=== PATIENT | female | born 1960 | race Caucasian/White ===

== ENCOUNTER 2016-11-22 09:38 | Inpatient (IN) | payer OTHER ==
[~2016-11-22] VITALS: Ht 170.2 cm; Wt 78.9 kg
[2016-11-22] VITALS (10 sets, daily range): BP systolic 103–145; BP diastolic 55–110
[2016-11-22] MEDS ORDERED: IV RINGERS,LACTATED 1000ML 1,000 ML IV SCH (14:42)
[2016-11-22] MEDS ORDERED: PROCHLORPERAZINE 10 MG/2 ML VIAL. IV PRN (14:45)
[2016-11-22] MEDS ORDERED: LIDOCAINE 1% 1 ML SYRINGE. ID PRN (14:45)
[2016-11-22] MEDS ORDERED: HYDROMORPHONE 2 MG/ML VIAL. IV PRN (14:45)
[2016-11-22] MEDS ORDERED: ONDANSETRON PF 4 MG/2 ML VIAL. IV PRN ×2 (14:45→17:30)
[2016-11-22] MEDS ORDERED: MORPHINE SULFATE 2 MG/ML DISP.SYRIN. IV PRN ×2 (14:45→17:30)
[2016-11-22] MEDS ORDERED: FENTANYL PF 100 MCG/2 ML VIAL. IV PRN ×2 (14:45→17:30)
[2016-11-22] MEDS ORDERED: PROPOFOL 20 ML IV ONE (15:19)
[2016-11-22] MEDS ORDERED: LIDOCAINE 2% 100 MG/5 ML DISP.SYRIN. ONE (15:19)
[2016-11-22] MEDS ORDERED: CEFAZOLIN 2GM PREMIX 50 ML IV ONE ×2 (15:58→16:15)
[2016-11-22] MEDS ORDERED: SEVOFLURANE 31 TO 60 MINUTES. IH ONE (16:13)
[2016-11-22] MEDS ORDERED: DEXAMETHASONE SOD PHOS 20 MG/5 ML VIAL. ONE (16:13)
[2016-11-22] MEDS ORDERED: KETOROLAC 30 MG/ML SYRINGE FOR OR. INJ ONE (16:52)
[2016-11-22] MEDS ORDERED: ONDANSETRON PF 4 MG/2 ML VIAL. ONE (16:52)
[2016-11-22] MEDS ORDERED: POLYETHYLENE GLYCOL 3350 17 GM PACKET. PO PRN (17:30)
[2016-11-22] MEDS ORDERED: HYDROCODONE/APAP 7.5/325MG TABLET. PO PRN ×2 (17:30)
[2016-11-22] MEDS ORDERED: OXYCODONE IR 5 MG TABLET. PO PRN (17:30)
[2016-11-22] MEDS ORDERED: MORPHINE SULFATE 4 MG/ML DISP.SYRIN. IV PRN (17:30)
[2016-11-22] MEDS ORDERED: DEXTROSE 50% 25 GM / 50ML DISP.SYRIN. IV PRN (17:30)
[2016-11-22] MEDS ORDERED: TRAMADOL 50 MG TABLET. PO PRN (17:30)
[2016-11-22] MEDS: FENTANYL PF 100 MCG/2 ML VIAL. IV PRN ×3 (17:40→18:15)
--- NOTE | 2016-11-22 19:18 | OP ---
DATE OF SURGERY: 11/22/2016 PREOPERATIVE DIAGNOSIS: Trimalleolar left ankle fracture. POSTOPERATIVE DIAGNOSIS: Trimalleolar left ankle fracture. PROCEDURE: Operative reduction and internal fixation bimalleolar portion of trimalleolar left ankle fracture. SURGEON: Jackson Nguyen M.D. ANESTHESIA: General endotracheal. ESTIMATED BLOOD LOSS: Minimal. COMPLICATIONS: None. OPERATIVE INDICATIONS: The patient was seen at [facility] ER today after slipping going out to her car and was transferred to [facility] for further evaluation and treatment of the above noted injury. After medical preoperative evaluation and surgical clearance, I had gone over with her and her previously the risks, benefits, postoperative course of the recommended operative treatment and even under the best of circumstances possibility of stiffness and pain, even degenerative changes and rationale to treat stability and minimize these possibilities with an operative evaluation and treatment. All her questions were answered. Consent was obtained and she agrees to proceed with operative evaluation and treatment. OPERATIVE TECHNIQUE: The patient was identified, procedure verified. The patient placed in the spine position on the operating table. After adequate amounts of general endotracheal anesthesia were administered, the left thigh tourniquet was placed on the left lower extremity and the left lower extremity is prepped and draped in standard sterile fashion. After timeout was performed, the patient and procedure identified and verified, the left lower extremity was exsanguinated by elevation, tourniquet inflated to 350 mmHg and an incision was made over the medial malleolus. Subperiosteal dissection carried out and anatomic reduction carried out and a total of two 3.5 cannulated screws were placed across the fracture site with excellent fixation obtained. Lateral side was addressed as follows. Subperiosteal dissection carried out to the distal fibula. A 6-hole distal fibular locking plate was placed. First a single 3.5 locking screw was placed to hold the plate with the fracture held in anatomic reduction. Distal 2.7 locking screws were placed as measured and the remainder of proximal nonlocking 3.5 bicortical screws were placed. Excellent fixation was obtained and anatomic reduction of the ankle joint mortise was noted. Hardware placement was checked under multiple fluoroscopic views and the posterior malleolar fragment was noted to be anatomically reduced on lateral view as well. Thorough irrigation carried out with normal saline solution. Closure accomplished with buried Vicryl sutures, subcuticular Monocryl, Steri-Strips and Mastisol well-padded posterior splint. Toes were noted to be warm and pink following deflation of the tourniquet after a total tourniquet time less than 1 hour. The patient was extubated and transferred to postop holding in stable condition having tolerated the procedure well. JACKSON NGUYEN MD DR: SANDI/taylor JOB#: [id number] / [id number]
[2016-11-22] MEDS ORDERED: 0.9 % SODIUM CHLORIDE 10 ML DISP.SYRIN. IV PRN (19:45)
--- NOTE | 2016-11-22 20:24 | HP ---
ADMIT DATE: 11/22/2016 CHIEF COMPLAINT: Left ankle fracture. HISTORY OF PRESENT ILLNESS: The patient is a 56-year-old woman in a fairly good state of health who slipped on the ice breaking her left ankle this morning. She was transferred from [facility] with Dr. Nguyen accepting her for surgery later today. The patient relates that the pain currently is well controlled. She received p.o. pain medications at [facility]. PAST MEDICAL HISTORY: Hypothyroidism, on Synthroid. FAMILY HISTORY: Noncontributory, sister with breast cancer in her 60s. 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 ALLERGIES: No known drug allergies. MEDICATIONS: MAR reconciled with home medications. REVIEW OF SYSTEMS: The patient relates that currently pain is very well controlled. Has no other complaints in rest of organ system review. PHYSICAL EXAMINATION: VITAL SIGNS: Show a blood pressure of 147/79, heart rate of 98, respiratory rate at 18. She is afebrile, satting 97-100% on room air. Temp of 100.3. GENERAL: She is alert and oriented, in no acute distress. HEENT: Shows no scleral icterus. NECK: Supple without any lymphadenopathy. LUNGS: Clear to auscultation bilaterally. HEART: Regular rate and rhythm. ABDOMEN: Has positive bowel sounds, soft, nontender. EXTREMITIES: Show no edema. Lower extremity is wrapped in Michael bandage and the left toe appears pink and warm. LABORATORY DATA: Reviewed from [place], essentially within normal limits. ASSESSMENT AND PLAN: The patient is a 56-year-old woman who unfortunately sustained a trimalleolar ankle fracture on the left. She is scheduled to undergo a surgical repair later this afternoon. I discussed pain regimen with her. She will have oral medications available preferentially. Morphine will be back up IV as needed. Discussed with her constipation issues, drug-induced as well as surgery. We will start her on MiraLax daily. High risk for DVT is given with orthopedic surgery. We will start Lovenox tomorrow a.m. unless uncontrolled bleeding is noted. Rehab and discharge will be dependent on Orthopedic evaluation. We will get OT, PT involved in the near future. SHANNON VAN MD DR: LEELEE/nts JOB#: [id number] / [id number] MAGGY Mullen
[2016-11-22] MEDS: CEFAZOLIN 2GM PREMIX 50 ML IV SCH (22:15)
--- NOTE | 2016-11-23 01:05 | CONS ---
DATE OF CONSULTATION: 11/22/2016 HISTORY OF PRESENT ILLNESS: The patient is a 56-year-old female that had fallen today while she was attempting to get in the car, slipped on some ice, and presented to the [facility] Emergency Department with a left ankle injury. She was found to have a trimalleolar fracture and sent to [facility] for further evaluation and treatment. PAST MEDICAL HISTORY: Significant really only for hypothyroidism. She is on thyroid medication. ALLERGIES: No known drug allergies. FAMILY HISTORY: Noncontributory. REVIEW OF SYSTEMS: Denies any chest pain, shortness of breath, radiating pain, focal weakness, numbness, tingling, change in bowel or bladder habits, neck or back pain, visual changes. No evidence of any head trauma or loss of consciousness. Last intake of food was 0615 a.m. PHYSICAL EXAMINATION: VITAL SIGNS: Temp 98.1, pulse 79, blood pressure 140/73, 98% saturation on room air. HEENT: Atraumatic, normocephalic. EXTREMITIES: Examination of the left ankle reveals tenderness over the medial and lateral malleoli with obvious swelling and deformity. Skin is overlying intact aside from swelling and has clear ligamentous laxity. She has normal examination of the contralateral ankle, bilateral hips and knees motion and alignment with intact motor function, distal pulses, sensation in both lower extremities throughout. IMAGING: X-rays show a trimalleolar ankle fracture with some mild displacement of the left ankle. TREATMENT AND PLAN: I have discussed with the patient and her the structure and function and anatomy of the ankle, the recommended fixation with the trimalleolar fracture and the hearing instability, the possibility even under the best of circumstances of having some stiffness and pain with activity, whether changes, etc., as well as the possibility of nonhealing, but the intention of surgical evaluation to fixate the ankle anatomically as possible and minimize any of these issues as well as any instability. I did describe to her that often if the posterior malleolar fragment is not large enough, that it may not require fixation; however, if it is larger intraoperatively, we would proceed with fixation of that as well as needed. She is aware of the approximate 6 week-period healing permitting of nonweightbearing and the risks, benefits, postoperative course of possible infection, nerve or blood vessel damage, medical or other anesthetic complications, blood clots among others. All her questions were answered. Consent was obtained and she agrees to proceed with operative evaluation and treatment, which will occur today following medical evaluation and clearance. MARYBEL TAI MD DR: SANDI/taylor JOB#: [id number] / [id number]
[2016-11-23 03:00] VITALS: BP 102/55
[2016-11-23] MEDS: CEFAZOLIN 2GM PREMIX 50 ML IV SCH ×2 (04:14→10:56)
[2016-11-23] MEDS ORDERED: MAGNESIUM HYDROXIDE 2,400 MG/30 ML ORAL.SUSP. PO PRN (06:00)
[2016-11-23 06:35] LABS: BASO % 0 % (0-3); EOS % 0 % (0-3); HEMATOCRIT 35.2 % (36.0-47.0); HEMOGLOBIN 11.8 g/dL (12.0-15.5); LYMPH % 11 % (24-48); MEAN CORPUSCULAR HEMOGLOBIN 29 pg (25-35); MEAN CORPUSCULAR HGB CONC 34 g/dL (31-37); MEAN CORPUSCULAR VOLUME 85 fL (79-100); MONO % 5 % (0-9); NEUT % 83 % (31-73); PLATELET COUNT 237 x10^3/uL (140-400); RED BLOOD COUNT 4.15 x10^6/uL (3.50-5.40); RED CELL DISTRIBUTION WIDTH 13.1 % (11.5-14.5); WHITE BLOOD COUNT 9.2 x10^3/uL (4.0-11.0)
[2016-11-23 06:52] LABS: CALCIUM 9.1 mg/dL (8.5-10.1); CREATININE 0.7 mg/dL (0.6-1.0); GFR 86.2; POTASSIUM 4.6 mmol/L (3.5-5.1)
[2016-11-23 07:00] VITALS: BP 110/63
[2016-11-23] MEDS ORDERED: INFLUENZA VAX SCREEN BY RX. MC PRN (08:45)
[2016-11-23] MEDS ORDERED: FLU VACC QUAD 2016-17 (36MOS+)/PF 0.5 ML SYRINGE. VAX IM ONE (09:00)
[2016-11-23] MEDS ORDERED: POLYETHYLENE GLYCOL 3350 17 GM PACKET. PO PRN (09:00)
[2016-11-23] MEDS ORDERED: SENNOSIDES/DOCUSATE 8.6/50MG TABLET. PO SCH (09:00)
[2016-11-23] MEDS ORDERED: ENOXAPARIN 40 MG/0.4 ML DISP.SYRIN. SQ SCH (09:00)
[2016-11-23] MEDS ORDERED: ACETAMINOPHEN 325 MG TABLET. PO PRN (10:15)
[2016-11-23 11:00] VITALS: BP 132/75
--- NOTE | 2016-11-23 14:42 | PDOC ---
PROGRESS NOTES Chief Complaint Chief Complaint L ankle fx ASSESSMENT AND PLAN: 1. L ankle fx: s/p fixation on 11/[address] Nguyen. recovering appropriately 2. Pain control: good. minimal med need 3. Hypothyroidism: restart synthroid 100 4. Prophylaxis: lovenox to ASA 5. Dispo: home today w/ F/U Dr Nguyen Vitals Vitals Vital Signs Date Time Temp Pulse Resp B/P Pulse Ox O2 Delivery O2 Flow Rate FiO2 11/23/16 11:00 97.5 89 18 132/75 99 Room Air 97.5 11/22/16 17:51 8.0 Physical Exam General: Alert, Oriented X3, Cooperative Heart: Regular rate Lungs: Clear Abdomen: Normal bowel sounds, Soft, No tenderness Extremities: Other (L LE in wrap) Skin: No rashes Labs LABS Laboratory Tests Test 11/23/16 05:50 White Blood Count 9.2x10^3/uL (4.0-11.0) Red Blood Count 4.15x10^6/uL (3.50-5.40) Hemoglobin 11.8g/dL (12.0-15.5) Hematocrit 35.2% (36.0-47.0) Mean Corpuscular Volume 85fL (79-100) Mean Corpuscular Hemoglobin 29pg (25-35) Mean Corpuscular Hemoglobin Concent 34g/dL (31-37) Red Cell Distribution Width 13.1% (11.5-14.5) Platelet Count 237x10^3/uL (140-400) Neutrophils (%) (Auto) 83% (31-73) Lymphocytes (%) (Auto) 11% (24-48) Monocytes (%) (Auto) 5% (0-9) Eosinophils (%) (Auto) 0% (0-3) Basophils (%) (Auto) 0% (0-3) Neutrophils # (Auto) 7.6x10^3uL (1.8-7.7) Lymphocytes # (Auto) 1.0x10^3/uL (1.0-4.8) Monocytes # (Auto) 0.5x10^3/uL (0.0-1.1) Eosinophils # (Auto) 0.0x10^3/uL (0.0-0.7) Basophils # (Auto) 0.0x10^3/uL (0.0-0.2) Sodium Level 144mmol/L (136-145) Potassium Level 4.6mmol/L (3.5-5.1) Chloride Level 108mmol/L (98-107) Carbon Dioxide Level 28mmol/L (21-32) Anion Gap 8 (6-14) Blood Urea Nitrogen 15mg/dL (7-20) Creatinine 0.7mg/dL (0.6-1.0) Estimated GFR (Cockcroft-Gault) 86.2 Glucose Level 114mg/dL (70-99) Calcium Level 9.1mg/dL (8.5-10.1) Review of Systems Review of Systems eager to go home, pain very well controlled. Comment Review of Relevant I have reviewed the following items brigette (where applicable) has been applied. Labs Laboratory Tests Test 11/23/16 05:50 White Blood Count 9.2x10^3/uL (4.0-11.0) Red Blood Count 4.15x10^6/uL (3.50-5.40) Hemoglobin 11.8g/dL (12.0-15.5) Hematocrit 35.2% (36.0-47.0) Mean Corpuscular Volume 85fL (79-100) Mean Corpuscular Hemoglobin 29pg (25-35) Mean Corpuscular Hemoglobin Concent 34g/dL (31-37) Red Cell Distribution Width 13.1% (11.5-14.5) Platelet Count 237x10^3/uL (140-400) Neutrophils (%) (Auto) 83% (31-73) Lymphocytes (%) (Auto) 11% (24-48) Monocytes (%) (Auto) 5% (0-9) Eosinophils (%) (Auto) 0% (0-3) Basophils (%) (Auto) 0% (0-3) Neutrophils # (Auto) 7.6x10^3uL (1.8-7.7) Lymphocytes # (Auto) 1.0x10^3/uL (1.0-4.8) Monocytes # (Auto) 0.5x10^3/uL (0.0-1.1) Eosinophils # (Auto) 0.0x10^3/uL (0.0-0.7) Basophils # (Auto) 0.0x10^3/uL (0.0-0.2) Sodium Level 144mmol/L (136-145) Potassium Level 4.6mmol/L (3.5-5.1) Chloride Level 108mmol/L (98-107) Carbon Dioxide Level 28mmol/L (21-32) Anion Gap 8 (6-14) Blood Urea Nitrogen 15mg/dL (7-20) Creatinine 0.7mg/dL (0.6-1.0) Estimated GFR (Cockcroft-Gault) 86.2 Glucose Level 114mg/dL (70-99) Calcium Level 9.1mg/dL (8.5-10.1) Laboratory Tests Test 11/23/16 05:50 White Blood Count 9.2x10^3/uL (4.0-11.0) Red Blood Count 4.15x10^6/uL (3.50-5.40) Hemoglobin 11.8g/dL (12.0-15.5) Hematocrit 35.2% (36.0-47.0) Mean Corpuscular Volume 85fL (79-100) Mean Corpuscular Hemoglobin 29pg (25-35) Mean Corpuscular Hemoglobin Concent 34g/dL (31-37) Red Cell Distribution Width 13.1% (11.5-14.5) Platelet Count 237x10^3/uL (140-400) Neutrophils (%) (Auto) 83% (31-73) Lymphocytes (%) (Auto) 11% (24-48) Monocytes (%) (Auto) 5% (0-9) Eosinophils (%) (Auto) 0% (0-3) Basophils (%) (Auto) 0% (0-3) Neutrophils # (Auto) 7.6x10^3uL (1.8-7.7) Lymphocytes # (Auto) 1.0x10^3/uL (1.0-4.8) Monocytes # (Auto) 0.5x10^3/uL (0.0-1.1) Eosinophils # (Auto) 0.0x10^3/uL (0.0-0.7) Basophils # (Auto) 0.0x10^3/uL (0.0-0.2) Sodium Level 144mmol/L (136-145) Potassium Level 4.6mmol/L (3.5-5.1) Chloride Level 108mmol/L (98-107) Carbon Dioxide Level 28mmol/L (21-32) Anion Gap 8 (6-14) Blood Urea Nitrogen 15mg/dL (7-20) Creatinine 0.7mg/dL (0.6-1.0) Estimated GFR (Cockcroft-Gault) 86.2 Glucose Level 114mg/dL (70-99) Calcium Level 9.1mg/dL (8.5-10.1) Medications Current Medications Ondansetron HCl (Zofran) 4 mg PRN Q6HRS PRN IV Nausea; Start 11/22/16 at 14:45 ; Stop 11/22/16 at 22:00; Status DC Fentanyl Citrate (Fentanyl 2ml Vial) 25 mcg PRN Q5MIN PRN IV MILD PAIN Last administered on 11/22/16t 18:15; Start 11/22/16 at 14:45; Stop 11/22/16 at 19:57 ; Status DC Fentanyl Citrate (Fentanyl 2ml Vial) 50 mcg PRN Q5MIN PRN IV MODERATE PAIN; Start 11/22/16 at 14:45; Stop 11/22/16 at 19:57; Status DC Morphine Sulfate 1 mg 1 mg PRN Q10MIN PRN IV SEVERE PAIN; Start 11/22/16 at 14: 45; Stop 11/22/16 at 19:42; Status DC Lactated Ringer's (Iv Lactated Ringers) 1,000 ml @ 30 mls/hr Q24H IV ; Start at 14:42; Stop 11/22/16 at 16:45; Status DC Lidocaine HCl 2 ml 1X PRN PRN ID IV START; Start 11/22/16 at 14:45; Stop at 16:27; Status DC Hydromorphone HCl (Dilaudid) 0.5 mg PRN Q10MIN PRN IV SEV PAIN,Second choice; Start 11/22/16 at 14:45; Stop 11/22/16 at 19:42; Status DC Prochlorperazine Edisylate 5 mg 5 mg PACU PRN PRN IV NAUSEA; Start 11/22/16 at 14:45; Stop 11/22/16 at 22:00; Status DC Propofol (Diprivan) 20 ml @ As Directed STK-MED ONCE IV ; Start 11/22/16 at 15: 19; Stop 11/22/16 at 16:27; Status DC Lidocaine HCl 100 mg 100 mg STK-MED ONCE .ROUTE ; Start 11/22/16 at 15:19; Stop 11/22/16 at 16:27; Status DC Cefazolin Sodium/ Dextrose 50 ml @ As Directed STK-MED ONCE IV ; Start 11/22/16 at 15:58; Stop 11/22/16 at 15:59; Status DC Cefazolin Sodium/ Dextrose (Ancef 2gm Premix) 50 ml @ 100 mls/hr 1X ONCE IV Last administered on 11/22/16t 16:15; Start 11/22/16 at 16:15; Stop 11/22/16 at 16:45; Status DC Dexamethasone Sodium Phosphate (Decadron) 20 mg STK-MED ONCE .ROUTE ; Start at 16:13; Stop 11/22/16 at 16:14; Status DC Sevoflurane (Ultane) 30 ml STK-MED ONCE IH ; Start 11/22/16 at 16:13; Stop 11/22 at 16:27; Status DC Ketorolac Tromethamine (Toradol For Or Only) 30 mg STK-MED ONCE INJ ; Start at 16:52; Stop 11/22/16 at 16:53; Status DC Ondansetron HCl (Zofran) 4 mg STK-MED ONCE .ROUTE ; Start 11/22/16 at 16:52; Stop 11/22/16 at 16:53; Status DC Tramadol HCl (Ultram) 50 mg PRN QID PRN PO PAIN; Start 11/22/16 at 17:30 Oxycodone HCl (Roxicodone) 5 mg PRN Q3HRS PRN PO PAIN; Start 11/22/16 at 17:30 Morphine Sulfate 2 mg PRN Q1HR PRN IV PAIN; Start 11/22/16 at 17:30; Stop 11/22 at 19:57; Status DC Fentanyl Citrate (Fentanyl 2ml Vial) 25 mcg PRN Q1HR PRN IV PAIN; Start at 17:30; Stop 11/22/16 at 19:42; Status DC Senna/Docusate Sodium (Senna Plus) 1 tab DAILY PO ; Start 11/23/16 at 09:00; Stop 11/23/16 at 09:00; Status DC Polyethylene Glycol (miraLAX PACKET) 17 gm PRN DAILY PRN PO CONSTIPATION; Start 11/22/16 at 17:30; Stop 11/22/16 at 19:57; Status DC Ondansetron HCl (Zofran) 4 mg PRN Q4HRS PRN IV NAUSEA/VOMITING; Start 11/22/16 at 17:30; Stop 11/22/16 at 19:57; Status DC Magnesium Hydroxide (Milk Of Magnesia) 2,400 mg 1X PRN PRN PO CONSTIPATION; Start 11/23/16 at 06:00; Stop 11/24/16 at 05:59 Bisacodyl (Dulcolax Supp) 10 mg 1X PRN PRN [place] CONSTIPATION; Start 11/23/16 at 16:00; Stop 11/24/16 at 15:59 Acetaminophen/ Hydrocodone Bitart (Lortab 7.5/325) 1 tab PRN Q4HRS PRN PO PAIN ; Start 11/22/16 at 17:30; Stop 11/22/16 at 19:57; Status DC Morphine Sulfate 4 mg PRN Q2HR PRN IV PAIN; Start 11/22/16 at 17:30; Stop 11/22 at 19:42; Status DC Acetaminophen/ Hydrocodone Bitart (Lortab 7.5/325) 2 tab PRN Q4HRS PRN PO PAIN ; Start 11/22/16 at 17:30; Stop 11/22/16 at 19:57; Status DC Dextrose 12.5 gm 12.5 gm PRN Q15MIN PRN IV SEE COMMENTS; Start 11/22/16 at 17: 30 Cefazolin Sodium/ Dextrose (Ancef 2gm Premix) 50 ml @ 100 mls/hr Q6H IV Last administered on 11/23/16t 10:56; Start 11/22/16 at 22:00; Stop 11/23/16 at 10:29 ; Status DC Sodium Chloride 3 ml 3 ml PRN DAILY PRN IV AFTER MEDS AND BLOOD DRAWS; Start at 19:45 Potassium Chloride/Sodium Chloride (KCl 20 Meq-NS 1,000 ml Iv Soln) 1,000 ml @ 75 mls/hr [id number] IV Last administered on 11/22/16 22:20; Start 11/22/16 at 20 :00 Enoxaparin Sodium (Lovenox 40mg Syringe) 40 mg Q24H SQ ; Start 11/23/16 at 09:00 Polyethylene Glycol (miraLAX PACKET) 17 gm DAILY PRN PO CONSTIPATION; Start at 09:00 Info (Do NOT chart on this placeholder) 1 each PRN 1X PRN MC SEE COMMENTS; Start 11/23/16 at 08:45; Status UNV Influenza Virus Vaccine Quadrival (Fluarix Quad [id number] Syringe) 0.5 ml ONCE ONCE VAX IM Last administered on 11/23/16 10:45; Start 11/23/16 at 09:00; Stop 11/23/16 at 09:01; Status DC Acetaminophen (Tylenol) 650 mg PRN Q6HRS PRN PO MILD PAIN / TEMP Last administered on 11/23/16 10:42; Start 11/23/16 at 10:15 Vitals/I & O Vital Sign - Last 24 Hours 11/22/16 11/22/16 11/22/16 11/22/16 17:24 17:30 17:39 17:40 Temp 100.3 100.3 100.3 100.3 Pulse 101 98 Resp 16 18 16 B/P 100/74 143/65 Pulse Ox 100 100 100 O2 Delivery Simple Mask Mask Simple Mask Simple Mask O2 Flow Rate 8 8 8 8.0 11/22/16 11/22/16 11/22/16 11/22/16 17:51 17:54 18:09 18:15 Temp 100.3 99.4 100.3 99.4 Pulse 98 96 Resp 18 18 20 20 B/P 147/79 144/72 Pulse Ox 100 97 96 96 O2 Delivery Simple Mask Room Air Room Air Room Air O2 Flow Rate 8.0 11/22/16 11/22/16 11/22/16 11/22/16 18:24 18:45 19:00 19:15 Temp 99.4 97.8 99.4 97.8 Pulse 96 97 105 106 Resp 20 16 16 B/P 140/67 137/79 145/71 135/110 Pulse Ox 96 93 94 93 O2 Delivery Room Air Room Air Room Air Room Air 11/22/16 11/22/16 11/22/16 11/22/16 19:45 20:00 20:15 20:45 Temp 98.7 99.9 99.0 98.7 99.9 99.0 Pulse 61 103 102 Resp B/P 138/91 132/76 107/57 Pulse Ox 94 97 96 O2 Delivery Room Air Room Air Room Air Room Air 11/22/16 11/22/16 11/23/16 11/23/16 21:45 22:45 03:00 07:00 Temp 98.7 98.9 99.0 98.1 98.7 98.9 99.0 98.1 Pulse 100 101 108 83 Resp B/P 106/55 103/55 102/55 110/63 Pulse Ox 97 94 95 96 O2 Delivery Room Air Room Air Room Air Room Air 11/23/16 11/23/16 08:10 11:00 Temp 97.5 97.5 Pulse 89 Resp 18 B/P 132/75 Pulse Ox 99 O2 Delivery Room Air Room Air Intake and Output 11/22/16 11/22/16 11/23/16 15:00 23:00 07:00 Intake Total 700 ml 1854 ml Output Total 350 ml 550 ml Balance -350 ml 150 ml 1854 ml SHANNON VAN MD Nov 23, 2016 14:42
[2016-11-23] MEDS ORDERED: BISACODYL 10 MG SUPP.RECT PR PRN (16:00)
--- NOTE | 2016-11-23 16:14 | DISCH ---
DISCHARGE INSTRUCTIONS Condition on Discharge Condition on Discharge: Stable Activity After Discharge Activity Instructions for Disc: Other, see below Weight Bearing Status after Di: Non weight bearing Diet after Discharge Diet after Discharge: Regular Contacting the [facility] after DC Call your doctor for: Concerns you may have Follow-Up Follow up with: Dr Nguyen in 10-14 days SHANNON VAN MD Nov 23, 2016 16:14
[2016-11-23] MEDS ORDERED: OXYC5TAB PO (16:16)
[2016-11-23] MEDS ORDERED: ASPI325T11 PO (16:16)
[2016-11-23 17:00] VITALS: BP 129/69
--- NOTE | 2016-11-24 13:23 | PDOC ---
BRIEF OPERATIVE NOTE Date: Nov 22, 2016 Pre-Op Diagnosis trimalleolar left ankle fx Post-Op Diagnosis same Procedure Performed ORIF bimalleolar portion of trimalleolar ankle fx Surgeon Patrick Anesthesia Type: General Blood Loss 10cc Findings above Complications none MARYBEL TAI MD Nov 24, 2016 13:22
--- NOTE | 2016-11-24 19:41 | DS ---
DATE OF DISCHARGE: 11/23/2016 HOSPITAL COURSE: The patient is a 56-year-old woman who slipped on the ice on 11/22/2016 with resultant trimalleolar ankle fracture on the left. She was taken to the operating room by Dr. Nguyen for fixation. She tolerated the procedure without any difficulties. Recovery was uneventful and she required minimal pain medication. She was therefore discharged to home on postop day #1. PHYSICAL EXAMINATION: Please refer to note from same day. DISCHARGE DISPOSITION: To home. DISCHARGE CONDITION: Improved. DISCHARGE DIAGNOSIS: Left ankle fracture. DISCHARGE MEDICATIONS: Please refer to MAR. DISCHARGE INSTRUCTIONS: The patient will follow up with PCP in 2 weeks. She will see Dr. Nguyen in 7-10 days. SHANNON VAN MD DR: UR/nts JOB#: [id number] / [id number] MAGGY Mullen
== END 2016-11-23 16:40 | disposition home or self-care (01) | DRG 494 ==
LOC: 4 NORTH 11:03
PROVIDERS: ADMIT Internal Medicine Hematology & Oncology; ATTEND Internal Medicine Hematology & Oncology
PROC: 0QSH04Z Reposition Left Tibia with Internal Fixation Device, Open Approach (ICD-10-PCS; principal; 2016-11-22 15:30)
DX: S82.852A Displaced trimalleolar fracture of left lower leg, initial encounter for closed fracture (principal); W00.0XXA Fall on same level due to ice and snow, initial encounter; E03.9 Hypothyroidism, unspecified; Y93.89 Activity, other specified; Y92.89 Other specified places as the place of occurrence of the external cause; Y99.8 Other external cause status; Z80.3 Family history of malignant neoplasm of breast
CPT/HCPCS: 36415; 76000; 80048; 85027; 90686; J0690; J1100; J1885; J2405; J2704; J3010; J7120; 97116

== ENCOUNTER 2021-03-19 12:34 | Day surgery (SDC) | payer OTHER ==
[~2021-03-19] VITALS: Ht 167.6 cm; Wt 173.0 kg
[~2021-03-19 12:34] MED LIST: ASPI325T11 PO; HYDROmorphone 2 MG/ML VIAL IVP PRN; IV RINGERS,LACTATED 1000ML 1,000 ML IV SCH; MORPHINE SULFATE 2 MG/ML VIAL. IVP PRN; OXYC5TAB4 PO; PROCHLORPERAZINE 10 MG/2 ML VIAL. IVP PRN; fentaNYL PF VIAL 100 MCG/2 ML VIAL IVP PRN
[2021-03-19] MEDS ORDERED: PROPOFOL 10 MG/ML (20ML) VIAL. IV ONE (12:42)
[2021-03-19] MEDS ORDERED: LIDOCAINE 1% PF 5 ML VIAL. ONE (12:42)
[2021-03-19] MEDS ORDERED: ROCURONIUM 50 MG/5 ML VIAL. ONE (12:43)
[2021-03-19] MEDS ORDERED: fentaNYL PF VIAL 100 MCG/2 ML VIAL ONE ×2 (12:43→16:31)
[2021-03-19] MEDS ORDERED: OXYMETAZOLINE 0.05% NASAL SPRAY 30ML BOTTLE. NS ONE (13:00)
[2021-03-19 13:01] VITALS: BP 131/69
[2021-03-19] MEDS ORDERED: PHENYLEPHRINE 1% NASAL SPRAY 15ML BOTTLE. NS ONE (13:01)
[2021-03-19] MEDS ORDERED: LOSA-73 PO (13:15)
[2021-03-19] MEDS ORDERED: FLUT9.9S NS (13:15)
[2021-03-19] MEDS ORDERED: LEVO50TA5 PO (13:15)
[2021-03-19] MEDS ORDERED: LIDOCAINE 1%/EPI 1:100,000 20 ML VIAL. ONE (14:28)
[2021-03-19] MEDS ORDERED: PHENYLEPHRINE 0.5% NASAL SPRAY 15ML BOTTLE. NS ONE (14:32)
[2021-03-19] MEDS ORDERED: DEXAMETHASONE SOD PHOS 4 MG/ML VIAL ONE (14:57)
[2021-03-19] MEDS ORDERED: ONDANSETRON PF 4 MG/2 ML VIAL. ONE (14:57)
[2021-03-19] MEDS ORDERED: PHENYLEPHRINE in 0.9% NACL PF 1 MG/10 ML SYRINGE. IV ONE (14:58)
--- NOTE | 2021-03-19 16:20 | PDOC4 ---
IMMEDIATE POST OP NOTE Date: March 19, 2021 Pre-Op Diagnosis DEVIATED NASAL SEPTUM, BILATERAL EXTERNAL NASAL VALVE COLLAPSE, BILATERAL INFERIOR TURBINATE HYPERTROPHY, CHRONIC RHINITIS, RECURRENT ACUTE SINUSITIS Post-Op Diagnosis SAME ABOVE Procedure Performed BILATERAL FUNCTIONAL ENDOSCOPIC SINUS SURGERY TO INCLUDE BILATERAL MEDIAL MAXILLARY ANTROSTOMY, SEPTOPLASTY, BILATERAL INFERIOR TURBINATE REDUCTION, REPAI R OF BILATERAL NASAL VALVE COLLAPSE WITH LATERA Surgeon JORDON TRIVEDI MD Reporting Developer NONE Anesthesiologist DR. BENNETT Anesthesia Type: General Blood Loss 25mL Specimens Obtained none Findings 1. Septum deviated to right causing 80% obstruction 2. Bilateral inferior turbinate hypertrophy 3. Thick clear mucous filling nasal cavity bilaterally 4. Accessory maxillary ostia on right side 5. Bilateral external nasal valve collapse with inspiration Complications none Operative Note [id number] JORDON TRIVEDI MD March 19, 2021 16:20
[2021-03-19] MEDS ORDERED: ACET325T21 PO (16:31)
[2021-03-19] MEDS ORDERED: ONDA4TAB12 PO (16:31)
[2021-03-19] MEDS ORDERED: MUPI22OI2 NAS (16:31)
[2021-03-19] MEDS ORDERED: AMOX1TAB11 PO (16:31)
[2021-03-19] MEDS ORDERED: OXYC5CAP PO (16:31)
[2021-03-19] MEDS ORDERED: PRED20TA PO (16:31)
[2021-03-19] MEDS ORDERED: oxyCODONE IR 5 MG TABLET PO ONE (16:50)
[2021-03-19] MEDS ORDERED: ACETAMINOPHEN 325 MG TABLET. PO ONE (17:00)
[2021-03-19] MEDS ORDERED: CELE100C PO (17:07)
[2021-03-19 17:55] VITALS: BP 137/65
--- NOTE | 2021-03-19 18:02 | OP ---
DATE OF SURGERY: 03/19/2021 PREOPERATIVE DIAGNOSES: Deviated nasal septum, bilateral external nasal valve collapse, bilateral inferior turbinate hypertrophy, chronic rhinitis, recurrent acute sinusitis. POSTOPERATIVE DIAGNOSES: Deviated nasal septum, bilateral external nasal valve collapse, bilateral inferior turbinate hypertrophy, chronic rhinitis, recurrent acute sinusitis. PROCEDURE PERFORMED: Bilateral functional endoscopic sinus surgery to include bilateral medial maxillary antrostomy, septoplasty, bilateral inferior turbinate reductions and repair of bilateral external nasal valve collapse with Latera implant. SURGEON: Elizabeth Snow MD ANESTHESIA: General endotracheal anesthesia. ESTIMATED BLOOD LOSS: 25 mL INDICATIONS: The patient is a 60-year-old female with a longstanding history of chronic nasal airway obstruction and recurrent acute sinusitis and chronic nasal drainage. The decision was made that the patient will undergo the above procedure. After risks, benefits and alternatives of surgery were thoroughly discussed with the patient and informed consent was obtained. INTRAOPERATIVE FINDINGS: 1. Septum deviated to the right causing greater than 80% obstruction of the nasal airway. 2. Bilateral inferior turbinate hypertrophy. 3. Thick clear mucus discharge filling the nasal cavity bilaterally. 4. Maxillary ostia on the right side. 5. Bilateral external nasal valve collapse with inspiration. DESCRIPTION OF PROCEDURE: The patient was brought in the preoperative holding area. I marked the point of maximum collapse of the external nasal valve when the patient inspired bilaterally. The patient was then brought back to the operating room per anesthesia and intubated in a standard fashion. The patient was turned 90 degrees in the room. Her nasal vestibular hairs were trimmed and the Jay-Synephrine soaked pledgets were inserted in the nasal cavity bilaterally. The patient was then prepped and draped in a standard fashion. A left-sided hemitransfixion incision was made to elevate the mucoperichondrial flap off the left cartilaginous and bony septum and left nasal floor. A D-knife was then used to cut anterior to the septal deflection to the right side and elevate the mucoperichondrial flap of the right cartilaginous and bony septum and right nasal floor. Silver knife was used then to remove the deviated portions of septal cartilage. Sharp scissors were used superiorly and osteotome was used along the nasal floor to remove the deviated portions of bone and I further used Jin forceps superiorly to get better access to the middle meatus bilaterally. After this was completed, the nasal septum was found to be straight and the deviated portions of septum had been completely resected. The remaining 1-1/2 caudal and dorsal strut was left intact. The left-sided hemitransfixion incision was closed with simple interrupted sutures of 4-0 chromic and a quilting mattress suture of 4-0 plain gut was used to bring the two mucoperichondrial flaps back together in the midline. A 0-degree scope was then used to visualize the patient's left and right nasal cavity. Beginning on the left side, I injected the attachment of the middle turbinate and lateral nasal wall, both anteriorly and posteriorly with a submucosal injection of 1% lidocaine with 1:100,000 epinephrine. Clear mucous drainage was aspirated from the middle meatus. The middle turbinate was medialized with a [place] elevator, identified the uncinate process and used a backbiter forceps to resect the most inferior portion of the vertical process of the uncinate. The vertical and horizontal process of the uncinate were then medialized and completely resected. The natural ostium of the maxillary sinus was identified. This was widened both anteriorly and posteriorly until it was widely patent and in doing so, I removed the inflamed tissue from the maxillary ostia. My attention was then taken to the right side, I again injected the attachment of the middle turbinate and lateral nasal wall with 1% lidocaine with 1:100,000 epinephrine bilaterally. The middle turbinate was then medialized. Visualization of the middle meatus with again thick mucus drainage, which was aspirated. There was an accessory ostomy noted posterior to the uncinate process on this side using a backbiter forceps, I resected most inferior portion of the vertical process of the uncinate. The vertical and horizontal process were then medialized and correct and completely resected. The natural ostium of the maxillary sinus was identified. This was widened both anteriorly and posteriorly until this came in communication with the accessory ostia and then until it was widely patent. After this was completed, the middle turbinates were ____ to the septum using a sickle knife and the maxillary sinus was thoroughly irrigated and aspirated bilaterally. I then performed a bilateral inferior turbinate reduction. Beginning on the left side, I used a microdebrider cut into the anterior aspect of the inferior turbinate. I then performed a submucosal resection on the anterior aspect of the inferior turbinate. I then resected the excess mucosa along the entire length of the inferior turbinate on its lateral and inferior border including the posterior mulberry tissue. A suction [place] was then used to elevate the residual mucosa off the most inferior portion of the turbinate bone. A conservative resection of the most inferior portion of the turbinate bone was performed using Colby-Cut forceps. The residual mucosa was then trimmed and redraped on the residual turbinate bone. The residual turbinate bone was outfractured. Suction Bovie electrocautery was used along the cut edge of the mucosa, especially posteriorly for hemostasis. After this was completed, the nasal airway was widely patent on this side. An identical procedure was then performed on the right side. A piece of silicone sheeting was then cut to size. This was placed along the anterior septum, extending posteriorly between the middle turbinate and the lateral nasal wall. These splints were placed bilaterally and sutured to the anterior septum using 3-0 Prolene suture. The nasal cavity was then thoroughly aspirated. Betadine was again used to prep the patient's nasal cavity. I was preparing the patient for Latera with a marking device and marked Latera with an extend to the point of maximal collapse, which was marked in the preoperative holding area to the lateral nasal bony wall. I then placed a Latera implant using the needle insertion device. I inserted this in the marginal just lateral to the lower lateral crura in a subperichondrial plane and add to the scroll and then elevated all of this ____ subperichondrial and supraperiosteal level along the lateral nasal wall to the point that was marked for the device would be located. The device was then inserted and the insertion needle was gently removed as I held on to the Latera implant along the periosteum. On palpation of the implant, there was good widening of the lateral nasal wall at the point of maximum collapse of the external nasal valve. An identical procedure was performed on the right side. The nose was then cleaned. Steri-Strips and Mastisol were placed, taped the nose and a thermal splint was applied to the nose as well. At this point, the patient was then turned back over to anesthesia and extubated without complication. Sponge, needle and instrument counts were correct at the end of the case. COMPLICATIONS: None. CONDITION: Stable and transferred to recovery room. JOSELUIS DR: Kristian TID: [id number]
== END 2021-03-19 18:00 | disposition home or self-care (01) ==
LOC: SURG 12:34
PROVIDERS: ATTEND Otolaryngology
DX: J34.2 Deviated nasal septum (principal); J34.89 Other specified disorders of nose and nasal sinuses; J34.3 Hypertrophy of nasal turbinates; J31.0 Chronic rhinitis; J01.90 Acute sinusitis, unspecified; I10 Essential (primary) hypertension; E03.9 Hypothyroidism, unspecified; Z90.49 Acquired absence of other specified parts of digestive tract; Z98.890 Other specified postprocedural states; Z79.899 Other long term (current) drug therapy; Z20.822 Contact with and (suspected) exposure to COVID-19
CPT/HCPCS: 30140; 30468; 30520; 31267; 87426; A4215; A4364; A6254; C2625; J1100; J2370; J2405; J2704; J3010; J3490; A4452

== ENCOUNTER 2021-12-02 06:04 | Day surgery (SDC) | payer OTHER ==
[~2021-12-02] VITALS: Ht 167.6 cm; Wt 82.0 kg
[~2021-12-02 06:04] MED LIST changes: +ACET325T21 PO; +AMOX1TAB11 PO; +CELE100C PO; +FLUT9.9S NS; +HYDROmorphone 2 MG/ML INJ. IVP PRN; -HYDROmorphone 2 MG/ML VIAL IVP PRN; +LEVO50TA5 PO; +LOSA-73 PO; +MORPHINE SULFATE 2 MG/ML INJ. IVP PRN; -MORPHINE SULFATE 2 MG/ML VIAL. IVP PRN; +MUPI22OI2 NAS; +ONDA4TAB12 PO; +OXYC5CAP PO; +PRED20TA PO
[2021-12-02] MEDS ORDERED: GALC120P SQ (06:22)
[2021-12-02 06:28] VITALS: BP 155/85
[2021-12-02 06:51] LABS: CALCIUM 8.6 mg/dL (8.5-10.1); CREATININE 0.7 mg/dL (0.6-1.0); GFR 84.8; POTASSIUM 3.7 mmol/L (3.5-5.1)
[2021-12-02] MEDS ORDERED: LIDOCAINE 1%/EPI 1:100,000 20 ML VIAL. ONE (06:58)
[2021-12-02] MEDS ORDERED: BUPIVACAINE MPF 0.5% 30 ML VIAL. ONE (06:58)
[2021-12-02] MEDS ORDERED: SUCCINYLCHOLINE 200 MG/10 ML VIAL. ONE (07:05)
[2021-12-02] MEDS ORDERED: DEXAMETHASONE SOD PHOS 4 MG/ML VIAL ONE (07:05)
[2021-12-02] MEDS ORDERED: fentaNYL PF VIAL 100 MCG/2 ML VIAL ONE (07:05)
[2021-12-02] MEDS ORDERED: ONDANSETRON PF 4 MG/2 ML VIAL. ONE (07:05)
[2021-12-02] MEDS ORDERED: LIDOCAINE 2% PF 5 ML VIAL. ONE (07:05)
[2021-12-02] MEDS ORDERED: PROPOFOL 10 MG/ML (20ML) VIAL. IV ONE (07:05)
[2021-12-02] MEDS ORDERED: PROPOFOL 50 ML IV ONE (07:05)
--- NOTE | 2021-12-02 07:11 | PDOC1 ---
History and Physical Date of Service: DOS: DATE: 12/02/21 TIME: 07:05 Chief Complaint: Chief Complain: ankle pain History of Present Illness: HPI: Patient is a 61yo WF presenting today for surgery with Dr Kirby. Patient has a hx of left ankle OA and left peronal tendonosis. Here for surgical intervention. Reports history of HTN, hypothyroid. Takes losartan and synthroid. Took her losartan this morning. When I evaluated her she had no particular complains, eager for surgery. Past Medical/Surgical History: PMH/PSH: HTN, Hypothyroid Allergies: Allergies: Coded Allergies: lidocaine (Unverified Allergy, Intermediate, 12/02/21) caused fainting Family History: Family History: Noncontributory Social History: Social History: Denies alcohol tobacco drug use Current Medications: Current Medications Current Medications Fentanyl Citrate (Fentanyl 2ml Vial) 25 mcg PRN Q5MIN PRN IVP MILD PAIN 1-3; Start 12/02/21 at 06:00; Stop 12/03/21 at 05:59 Fentanyl Citrate (Fentanyl 2ml Vial) 50 mcg PRN Q5MIN PRN IVP MODERATE PAIN 4- 6; Start 12/02/21 at 06:00; Stop 12/03/21 at 05:59 Morphine Sulfate (Morphine Sulfate) 1 mg PRN Q10MIN PRN IVP SEVERE PAIN 7-10; Start 12/02/21 at 06:00; Stop 12/03/21 at 05:59 Ringer's Solution 1,000 ml @ 30 mls/hr Q24H IV Last administered on 12/02/21at 06:34; Start 12/02/21 at 06:00; Stop 12/02/21 at 17:59 Hydromorphone HCl (Dilaudid) 0.5 mg PRN Q10MIN PRN IVP SEVERE PAIN 7-10, 2nd CHOICE; Start 12/02/21 at 06:00; Stop 12/03/21 at 05:59 Prochlorperazine Edisylate (Compazine) 5 mg PACU PRN PRN IVP NAUSEA, MRX1; Start 12/02/21 at 06:00; Stop 12/03/21 at 05:59 Cefazolin Sodium/ Dextrose 50 ml @ 100 mls/hr 1X PREOP PRN IV PRIOR TO PROCEDURE; Start 12/02/21 at 06:00; Stop 12/02/21 at 18:00 Bupivacaine HCl (Sensorcaine Mpf 0.5%) 30 ml STK-MED ONCE .ROUTE ; Start 12/02/21 at 06:58; Stop 12/02/21 at 06:59; Status DC Lidocaine/ Epinephrine (LIDOCAINE 1%-EPI 1:100,000 Multi-Dose) 20 ml STK-MED ONCE .ROUTE ; Start 12/02/21 at 06:58; Stop 12/02/21 at 06:59; Status DC Active Scripts Active Ondansetron Odt (Ondansetron) 4 Mg Tab.rapdis 1 Tab PO PRN Q6-8HRS Mupirocin Ointment (Mupirocin) 22 Gm Oint...g. 1 Gavino NATANAEL BID 14 Days Oxycodone Hcl 5 Mg Capsule 5 Mg PO PRN Q6HRS PRN 10 Days Acetaminophen 325 Mg Tablet 1 Tab PO PRN Q4-6HRS PRN 24 Days Reported Emgality (Galcanezumab-Gnlm) 120 Mg/1 Ml Pen.injctr 120 Mg SQ MONTHLY Levothyroxine Sodium 50 Mcg Tablet 1 Tab PO DAILY Losartan Potassium 50 Mg Tablet 50 Mg PO DAILY ROS: Review of Systems Review of System Unless noted in HPI a 14pt ROS was negative Physical Exam: Vital Signs: Vital Signs Date Time Temp Pulse Resp B/P (MAP) Pulse Ox O2 Delivery O2 Flow Rate FiO2 12/02/21 06:31 98.2 93 14 155/85 97 Room Air 98.2 Physcial Exam: GEN: No apparent distress. Alert and oriented HEENT: Normal cephalic, atraumatic, external auditory canals are patent EYES: Extraocular muscles are intact, pupil are equally round and reactive to light and accommodation MUSCULOSKELETAL: Well developed , well nourished, good range of motion ENDOCRINE: No thyromegaly was palpated LYMPHATICS: No cervical chain or axillary nodes were noted HEMATOPOIETIC: No bruising NECK: Supple, no JVD, no thyromegaly was noted LUNGS: Clear to auscultation in all lung rodriguez without rhonchi or wheezing HEART: RRR, S!, S2 present. Peripheral pulses intact, no obvious murmurs noted ABDOMEN: Soft, nontender. Positive bowel sounds, no organomegaly, normal bowel sounds EXTREMITIES: Without clubbing, cyanosis, or edema. Pedal pulses intact. Negative Homans sign NEUROLOGIC: Normal speech and tone. A&O x 3, moves all extremities, no ob vious focal deficits PSYCHIATRIC: Normal affect, normal mood. Stable SKIN: No ulcerations or rashes, good skin turgor, no jaundice VASCULAR: Good capillary refill, neurovascular bundle appears to be intact Labs: Labs: Laboratory Tests Test 12/02/21 06:27 Sodium Level 142 mmol/L (136-145) Potassium Level 3.7 mmol/L (3.5-5.1) Chloride Level 107 mmol/L (98-107) Carbon Dioxide Level 28 mmol/L (21-32) Anion Gap 7 (6-14) Blood Urea Nitrogen 16 mg/dL (7-20) Creatinine 0.7 mg/dL (0.6-1.0) Estimated GFR (Cockcroft-Gault) 84.8 Glucose Level 105 mg/dL (70-99) Calcium Level 8.6 mg/dL (8.5-10.1) Laboratory Tests Test 12/02/21 06:27 Sodium Level 142 mmol/L (136-145) Potassium Level 3.7 mmol/L (3.5-5.1) Chloride Level 107 mmol/L (98-107) Carbon Dioxide Level 28 mmol/L (21-32) Anion Gap 7 (6-14) Blood Urea Nitrogen 16 mg/dL (7-20) Creatinine 0.7 mg/dL (0.6-1.0) Estimated GFR (Cockcroft-Gault) 84.8 Glucose Level 105 mg/dL (70-99) Calcium Level 8.6 mg/dL (8.5-10.1) Assessment/Plan Assessment/Plan Left Ankle Pain, Left peroneal tendonosis Here for surgical intervention, no contraindications to surgery from hospitalist perspective. Olive 0. Justifications for Admission Other Justification AMBER GALLOWAY MD Dec 02, 2021 07:11
[2021-12-02] MEDS ORDERED: MIDAZOLAM HCL/PF 2 MG/2 ML VIAL. ONE (07:14)
[2021-12-02] MEDS ORDERED: SCOPOLAMINE 1.5MG PATCH. TD ONE (07:30)
[2021-12-02] MEDS ORDERED: EPINEPHrine VIAL 30 MG/30 ML VIAL ONE (07:51)
[2021-12-02] MEDS ORDERED: ePHEDrine PF IN SALINE 50 MG/10 ML SYRINGE. IV ONE (08:20)
[2021-12-02] MEDS ORDERED: PHENYLEPHRINE 10 MG/ML VIAL. ONE (08:20)
[2021-12-02] MEDS ORDERED: EPINEPHrine VIAL 30 MG/30 ML VIAL IM ONE (08:21)
[2021-12-02] MEDS ORDERED: BUPIVACAINE MPF 0.5% 30 ML VIAL. IJ ONE (08:21)
[2021-12-02] MEDS ORDERED: KETAMINE HCL IN NACL, ISO-OSM 50 MG/5 ML SYRINGE ONE (08:26)
[2021-12-02] MEDS ORDERED: HYDROmorphone 2 MG/ML INJ. ONE (08:47)
[2021-12-02] MEDS ORDERED: ACETAMINOPHEN 325 MG TABLET. PO ONE (10:15)
[2021-12-02] MEDS ORDERED: oxyCODONE/APAP 5/325 1 TAB TABLET PO ONE (10:15)
--- NOTE | 2021-12-02 10:17 | PDOC4 ---
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 Otherwise, there is no significant OCD lesion to the talar dome. Osseous impingement and periarticular osteophyte to the distal lateral ankle gutter. A small ganglion cyst was noted at the lateral talar process. Attenuated ATFL Flattened PB tendon with a low muscle belly Attenuated/degenerated retinaculum Complications: None Operative Note: Under mild sedation, patient was brought into the operating room and placed on the operating table in the supine position. A formal timeout was performed to confirm patient's identity, procedure and procedure site. Following general anesthesia and preoperative IV antibiotics, a well-padded Left thigh tourniquet was applied. Patient was then positioned in a lazy lateral decubitus position with an aggressive ipsilateral hip bump. The left lower extremity was then scrubbed, prepped and draped using aseptic techniques. The left lower extremity was exsanguinated and the tourniquet was inflated to 250 millimercury. Attention was directed to the anterior aspect of the left ankle where a stab incision was created over the medial gutter. This incision was bluntly dissected and dilated with a hemostat. Blunt obturator was slided through the cannula and introduced to the ankle joint. An obturator was withdrawn and the camera was inserted. Primary survey was performed. A 4 mm, 30 degree camera was then utilized to localize the lateral incision. Again a stab incision was created over the lateral gutter. Blunt dissection was carried out down to the capsule which was penetrated. A cannula and blunt obturator were then introduced laterally into the joint. The obturator was removed and a 3.5mm shaver was inserted into the joint. At this time, we noted a significant synovitis invaginated into the ankle. there was significant delimination of the talar dome cartilage especially at the anterior margin. Further investigation was negative for any OCD lesion there was also a basilar ligament laterally and with passive ankle range of motion there was impingement across the lateral shoulder. There was not significant osseous proliferation or osseous impingement anteriorly. Using a high-speed 3.5 millimeter shaver, all the aforementioned soft tissue invagination, Including the basilar ligament, was debrided with care to protect the dorsal superficial neurovascular bundle. A 3.5 mm bur was used to excise and debride the exostosis until passive ankle range of motion was free from impingement. Then a final joint survey was unremarkable for OCD/cartilage deficit, or anterior ankle joint impingement. The attention was directed to the lateral distal ankle where a linear incision was made along the posterior margin of the distal fibula extending distal anteriorly towards the fourth metatarsal base. Using a combination of sharp and blunt dissection with care to protect and retract all the neurovascular bundles, the Peroneal tendon sheath was visualized and later incised to expose the peroneal tendons. A low PB muscle belly was encountered and then excised with the Bovie. The PB tendon was found flat without significant intrasubstance tear or degeneration. The PB tendon was then retubularized with 3-0 Ethibond. Then the peroneal tendon sheath was reefed and reattached to the posterior fibula under physiologic tension. Passive ankle range of motion was insignificant for peroneal tendon subluxation. The lateral fibula plate was unremarkable for loosening, breakage or failure. Because patient did not endorse any hardware im pingement, and she verbalized not to remove the hardware, the hardware was left in place. Then the attention was directed to the lateral distal fibula where a curvilinear incision was made just anterior to the margin of the distal fibula to access and expose the ATFL as patient complained about lateral ankle impingement and pain although without significant subjective instability preoperatively. The care was taken to protect and retract all the neurovascular bundles. A small ganglion cyst measures approximately 0.6 x 0.6 cm to the distal anterior ankle gutter near the lateral talar process. After ganglion cyst excision, we also remarked a small para-articular osteophyte/osseous impingement at the lateral talar process. A rongeur was used to remodeled the osseous prominence in the bleeding bone was cauterized with Bovie to prevent further proliferation or recurrence. Then the lateral ankle capsule including retinaculum, ATFL was incised to prepare for Brostrm Kaur stabilization. The ATFL was noted sli ghtly attenuated. The Stratton ligament was not visualized after ankle scope debridement. Then a 2-0 FiberWire was used to imbricate and repair the ATFL and lateral capsule ligament with ankle held dorsiflexed and everted. Subsequent anterior drawer test was negative for any instability. The surgical sites was irrigated with copious saline solution. The surgical site was closed with a combination of 3-0 Vicryl, 4 Monocryl and 4 nylon. 5 cc of 0.25% Marcaine plain was infiltrated into the surgical site for postoperative augmentation. The surgical site was covered with xeroform, 4 x 4, ABD and soft roll. The left lower extremity was immobilized in a well-padded [place] compression splint with ankle held in near neutral position. Tourniquet was deflated and adequate digital perfusion was noted. Patient tolerated anesthesia and surgery well with vital signs stable and neurovascular status intact. Patient was then transferred to PACU for continuous recovery, pending left ankle x-ray 3 view. JORDEN ARRINGTON DPM Dec 02, 2021 10:17
--- NOTE | 2021-12-02 10:42 | RAD ---
EXAM: Left ankle, 3 views. HISTORY: Fracture fixation. COMPARISON: 12/01/2021. FINDINGS: 3 views of the left ankle are obtained. There is internal fixation of bimalleolar fractures . There is a healed or nearly healed posterior malleolar fracture. There is subchondral sclerosis and lucency along the tibial plafond likely due to posttraumatic osteoarthritis. There is soft tissue sw elling. There is external casting material. There is a small plantar spur. There is enthesopathy at A chilles tendon insertion. IMPRESSION: 1. Internal fixation of bimalleolar fractures. 2. Suspected healed or nearly healed posterior malleolus fracture. 3. Tibiotalar joint osteoarthritis. 4. Note is made that the external casting material limits evaluation of bony detail. Electronically signed by: Jory Turner MD (12/02/2021 10:39 AM) [id number]
[2021-12-02] MEDS ORDERED: GABA-585 PO (10:43)
[2021-12-02] MEDS ORDERED: HYDR-2759 PO (10:43)
[2021-12-02] MEDS ORDERED: IBUP-1007 PO (10:44)
[2021-12-02] MEDS ORDERED: ACET500T68 PO (10:45)
[2021-12-02] MEDS ORDERED: ASPI-630 PO (10:45)
[2021-12-02 11:05] VITALS: BP 128/75
== END 2021-12-02 11:55 | disposition home or self-care (01) ==
LOC: SURG 06:04
PROVIDERS: ATTEND Podiatrist
DX: M76.72 Peroneal tendinitis, left leg (principal); M19.072 Primary osteoarthritis, left ankle and foot; E03.9 Hypothyroidism, unspecified; Z90.49 Acquired absence of other specified parts of digestive tract; Z98.890 Other specified postprocedural states; Z79.899 Other long term (current) drug therapy; Z79.82 Long term (current) use of aspirin; Z88.8 Allergy status to other drugs, medicaments and biological substances
CPT/HCPCS: 27675; 27698; 36415; 73610; 80048; A4209; A4930; A6253; J0171; J0330; J0690; J1100; J1170; J2250; J2370; J2405; J2704; J3010; J3490